=== PATIENT | female | born 1960 | race Caucasian/White ===

== ENCOUNTER 2017-01-06 18:41 | Emergency (ER) | payer MEDICAID ==
--- OUTSIDE RECORDS SUMMARY | 2017-01-06 19:22 | XMS REPORT | Continuity of Care Document ---
:1960 Author Organization [facility] [place] [address] Care Team Providers Name Role Phone Burke Aguilar Primary Care Provider [phone] Source Comments This disclosure is being made pursuant to the [employer] program and maynot contain all information available regarding this patient.[facility] Active Allergies and Adverse Reactions Not on File Current Medications Be aware that medications may not be up to date as of this document. Alwaysverify current medications with the patient. 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
--- OUTSIDE RECORDS SUMMARY | 2017-01-06 19:23 | XMS REPORT | Continuity of Care Document ---
:1960 Author Organization [facility] ([facility]) Address [address] [place] [address] Phone [phone] Care Team Providers Name Role Phone Burke Aguilar Primary Care Provider [phone] Source Comments This disclosure is being made pursuant to the Care Everywhere program, applicable federal and state laws, and may not contain all informaitonavailable regarding this patient.[facility] ([facility]) Active Allergies and Adverse Reactions Allergen Noted Date Severity Reactions Comments Azithromycin Urticaria (Hives) Codeine Seizure Doxycycline Urticaria (Hives) Erythromycin OTHER "Shakes" Iodinated Contrast Media - Oral And 02/18/2011 Anaphylaxis Iv Dye Lisinopril Persistent Cough Midazolam 06/20/2015 Unknown Penicillins Seizure Prochlorperazine Edisylate 07/14/2011 Agitation compazine Current Medications Prescription Sig. Disp. Refills Start Date End Date Status traMADol 50 mg tablet Take 50 mg by Active mouth as needed. piroxicam 20 mg capsule Take 20 mg by Active mouth at bedtime. METOPROLOL SUCCINATE PO Take 12.5 mg by Active mouth every evening. hydrochlorothiazide 25 mg Take 25 mg by Active tablet mouth daily. cyclobenzaprine (FLEXERIL) Take 10 mg by Active 10 mg tablet mouth daily. TRAZODONE 50 mg tablet 01/18/2014 Active topiramate 25 mg tablet Take 1 tab for 1 30 Tab 11 06/21/2015 Active week, then 2 tabs for 1 week, then 3 tabs for 1 week, then continue to take 4 tabs Active Problems Problem Noted Date Obstructive sleep apnea 11/06/2015 Snoring 11/06/2015 Encephalocele 08/15/2013 Idiopathic intracranial hypertension 08/15/2013 CSF rhinorrhea 08/15/2013 Anosmia 08/15/2013 Empty sella 08/15/2013 Dizziness and giddiness 08/02/2008 Other diseases of lung, not elsewhere classified 01/24/2008 Difficulty in walking(719.7) 01/16/2008 Neoplasm of unspecified nature, site unspecified 01/09/2008 Swelling, mass, or lump in chest 12/25/2007 Resolved Problems Problem Noted Date Resolved Date Headache(784.0) 06/21/2015 06/21/2015 Social History Tobacco Use Types Packs/Day Years Used Date Former Smoker Cigarettes 0.5 20 Quit: 10/31/2007 Smokeless Tobacco: Never Used Tobacco Cessation:Counseling Given: Yes Comments: Alcohol Use Drinks/Week oz/Week Comments No Last Filed Vital Signs Vital Sign Reading Time Taken Blood Pressure 114/62 06/21/2015 8:00 AM CDT Pulse 59 06/21/2015 8:00 AM CDT Temperature 36 C (96.8 F) 06/21/2015 8:00 AM CDT Respiratory Rate 16 06/21/2015 3:33 AM CDT Height 1.524 m (5') 06/21/2015 8:00 AM CDT Weight 102.2 kg (225 lb 5 oz) 06/21/2015 8:00 AM CDT Body Mass Index 44 06/21/2015 8:00 AM CDT Oxygen Saturation 94% 06/21/2015 8:00 AM CDT Plan of Care Health Maintenance Due Date Last Done Comments HCV Screening 1960 Hepatitis B Vaccine (1 of 3 - Primary Series) 1960 Tdap Vaccine 1973 Lipid Disorder Screening 1980 MMR Vaccine 1980 Td Vaccine 1980 Pneumococcal Vaccine (1 of 2 - PCV13) 1981 Cervical Cancer Screening 1992 Mammogram 2002 Colonoscopy 04/09/2012 Influenza Vaccine: Seasonal (#1) 05/31/2016 Results from Last 3 Months Not on file
[2017-01-06] MEDS ORDERED: MORPHINE SULFATE 4 MG/ML SYRG ONE (19:29)
[2017-01-06] MEDS ORDERED: CYCLOBENZAPRINE HCL 10 MG TABLET ONE (19:29)
[2017-01-06] MEDS: CYCLOBENZAPRINE HCL 10 MG TABLET PO ONE (19:30)
[2017-01-06] MEDS: MORPHINE SULFATE 2 MG/ML DISP.SYRIN IM ONE (19:32)
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
[2017-01-06] MEDS ORDERED: KETOROLAC TROMETHAMINE 30 MG/ML VIAL ONE (21:27)
[2017-01-06] MEDS: KETOROLAC TROMETHAMINE 30 MG/ML VIAL IM ONE (21:28)
[2017-01-06 21:35] VITALS: BP 132/88
== END 2017-01-06 21:34 | disposition home or self-care (01) ==
LOC: ER 18:41
DX: S46.912A Strain of unspecified muscle, fascia and tendon at shoulder and upper arm level, left arm, initial encounter (principal); F41.8 Other specified anxiety disorders; I10 Essential (primary) hypertension

== ENCOUNTER 2017-03-27 18:38 | Emergency (ER) | payer MEDICAID ==
[2017-03-27] MEDS ORDERED: diphenhydrAMINE HCL 50 MG/ML VIAL IM ONE (18:46)
[2017-03-27] MEDS ORDERED: KETOROLAC TROMETHAMINE 60 MG/2 ML VIAL IM ONE ×2 (18:46→19:07)
[2017-03-27 18:52] VITALS: BP 148/75
--- OUTSIDE RECORDS SUMMARY | 2017-03-27 19:02 | XMS REPORT | Continuity of Care Document ---
:1960 Author Organization [facility] ([facility]) Address [address] [place] [address] Phone [phone] Care Team Providers Name Role Phone Burke Aguilar Primary Care Provider [phone] Source Comments This disclosure is being made pursuant to the Care Everywhere program, applicable federal and state laws, and may not contain all informaitonavailable regarding this patient.[facility] ([facility]) Active Allergies and Adverse Reactions Allergen [...]
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
[2017-03-27] MEDS ORDERED: diphenhydrAMINE HCL 50 MG/ML VIAL ONE (19:07)
[2017-03-27] MEDS ORDERED: ORPHENADRINE CITRATE 30 MG/ML VIAL IM ONE (20:03)
[2017-03-27] MEDS ORDERED: ORPHENADRINE CITRATE 30 MG/ML VIAL ONE (20:04)
== END 2017-03-27 20:50 | disposition home or self-care (01) ==
LOC: ER 18:38
DX: M51.36 Other intervertebral disc degeneration, lumbar region (principal); H05.811 Cyst of right orbit; M54.31 Sciatica, right side; Z85.118 Personal history of other malignant neoplasm of bronchus and lung; F41.9 Anxiety disorder, unspecified; F32.9 Major depressive disorder, single episode, unspecified; I10 Essential (primary) hypertension